=== PATIENT | male | born 1965 | race Caucasian/White ===

== ENCOUNTER 2018-08-03 18:55 | Emergency (ER) | payer BC ==
--- NOTE | 2018-08-03 19:28 | EDM.PDOC ---
ED HPI GENERAL MEDICAL PROBLEM - General Chief Complaint: Upper Extremity Injury/Pain Stated Complaint: SMASHED LT THUMB Time Seen by Provider: 08/03/18 19:19 Source of Information: Reports: Patient History Limitations: Reports: No Limitations - History of Present Illness INITIAL COMMENTS - FREE TEXT/NARRATIVE: 53 yo male presents to ER with injury to left thumb. [place] smashed thumb. abrasion to posterior surface of thumb. generally healthy Left Finger-Thumb Pain Score (Numeric/FACES): 5 - Related Data Allergies Allergy/AdvReac Type Severity Reaction Status Date / Time No Known Allergies Allergy Verified 08/03/18 19:10 Home Meds: Home Meds Ibuprofen [Motrin] 600 mg PO BID 08/03/18 [History] Past Medical History HEENT History: Reports: Hard of Hearing, Impaired Vision - Infectious Disease History Infectious Disease History: Reports: Chicken Pox - Past Surgical History HEENT Surgical History: Reports: Tonsillectomy Social & Family History - Tobacco Use Smoking Status *Q: Never Smoker Second Hand Smoke Exposure: No - Caffeine Use Caffeine Use: Reports: Coffee, Soda - Recreational Drug Use Recreational Drug Use: No Review of Systems - Review of Systems Review Of Systems: See Below Constitutional: Denies: Chills, Fever Respiratory: Denies: Shortness of Breath, Wheezing Cardiovascular: Denies: Chest Pain ED EXAM, GENERAL - Physical Exam Exam: See Below Exam Limited By: No Limitations General Appearance: Alert, WD/WN, No Apparent Distress Respiratory/Chest: No Respiratory Distress Extremities: Other (left thumb moderate edema at distial PIP joint with abrqasion to posterior surface. ROM normal at MP joint. no tenderness in rest of hand. CMS intact distill to injury) Course - Vital Signs Last Recorded V/S: Last Vital Signs Temp 35.9 C 08/03/18 19:16 Pulse 64 08/03/18 19:16 Resp 16 08/03/18 19:16 BP 138/81 08/03/18 19:16 Pulse Ox 97 08/03/18 19:16 - Orders/Labs/Meds Orders: Active Orders 24 hr Category Date Time Status Fingers Thumb Lt FA [CR] Stat Exams 08/03/18 19:25 Taken - Radiology Interpretation Free Text/Narrative:: no acute injuries noted on x-ray Departure - Departure Time of Disposition: 20:24 Disposition: Home, Self-Care 01 Condition: Good Clinical Impression: Thumb injury Qualifiers: Encounter type: initial encounter Laterality: left Qualified Code(s): S69.92XA - Unspecified injury of left wrist, hand and finger(s), initial encounter - Discharge Information *PRESCRIPTION DRUG MONITORING PROGRAM REVIEWED*: Not Applicable *COPY OF PRESCRIPTION DRUG MONITORING REPORT IN PATIENT VAHID: Not Applicable Instructions: Thumb Sprain Referrals: PCP,None [Primary Care Provider] - Forms: ED Department Discharge Additional Instructions: ice as much as possible over the next 48 hours ibuprofen 400-600 mg every 6 hours for pain - My Orders Last 24 Hours: My Active Orders 08/03/18 19:25 Fingers Thumb Lt FA [CR] Stat - Assessment/Plan Last 24 Hours: My Active Orders 08/03/18 19:25 Fingers Thumb Lt FA [CR] Stat
--- NOTE | 2018-08-03 20:24 | CRLCR ---
INDICATION: TRAUMA COMPARISON: None. FINDINGS: Three views of the left thumb demonstrate normal mineralization and alignment. Small well corticated ossific fragments at the IP and MCP joints, consistent with accessory ossicles. No definite acute fracture dislocation. Soft tissues are unremarkable. IMPRESSION: No acute osseous abnormality. Dictated by Lucio Muro MD @ 08/03/2018 8:21:35 PM Dictated by: Lucio Muro MD @ 08/03/2018 20:21:42 (Electronically Signed)
== END 2018-08-03 20:35 | disposition home or self-care (01) ==
LOC: JP.ED 18:55
DX: S69.92XA Unspecified injury of left wrist, hand and finger(s), initial encounter (principal); Z98.890 Other specified postprocedural states; W23.0XXA Caught, crushed, jammed, or pinched between moving objects, initial encounter
CPT/HCPCS: 73140-FA; 99283-25